=== PATIENT | male | born 1985 | race Two or more races ===

== ENCOUNTER 2022-02-06 20:09 | Emergency (ER) | payer OTHER ==
[~2022-02-06] VITALS: Ht 177.8 cm; Wt 54.4 kg
[2022-02-07] MEDS ORDERED: KETO10TA2 PO ×2 (01:08→01:11)
== END 2022-02-07 01:26 ==
LOC: ER 20:09 → EDBD 20:14 → ER 20:14
DX: M54.50 Low back pain, unspecified (principal); Z91.013 Allergy to seafood

== ENCOUNTER → 2022-02-14 | Emergency (ER) | payer OTHER ==
[~2022-02-14] VITALS: Ht 177.8 cm; Wt 54.4 kg
[~2022-02-14] MED LIST: KETO10TA2 PO; VISTARIL50 MG PO
== END | disposition home or self-care (01) ==
LOC: ER 23:42
DX: F41.9 Anxiety disorder, unspecified (principal); Z91.013 Allergy to seafood